=== PATIENT | male | born 1995 | race Caucasian/White ===

== ENCOUNTER 2017-05-19 14:58 | Emergency (ER) | payer BC ==
[~2017-05-19] VITALS: Ht 182.8 cm; Wt 76.7 kg
[~2017-05-19 14:58] MED LIST: AMOXICILLIN500 MG PO; IBU-6600 MG PO; MOTRIN800 MG PO; SINGULAIR10 MG PO
[2017-05-19 16:12] LABS: BASO % 0.3 % (0.0-1.0); EOS # 0.1 10*3/uL (0.0-0.4); EOS % 1.4 % (1.0-4.0); HEMATOCRIT 42.6 % (42.0-52.0); HEMOGLOBIN 14.9 g/dl (14.0-18.0); LYMPH # 1.7 10*3/uL (1.3-4.4); MEAN CELL VOLUME 89.9 fl (80.0-94.0); MEAN CORPUSCULAR HGB 31.4 pg (27.0-31.0); MONO # 0.4 10*3/uL (0.1-1.0); MONO % 5.1 % (3.0-9.0); NEUT # 5.5 10*3/uL (2.3-7.9); NEUT % 70.9 % (47.0-73.0); PLATELET COUNT AUTOMATED 200 10*3/uL (130-400); RED BLOOD COUNT 4.74 10*6/uL (4.50-5.90); RED CELL DISTRI WIDTH 11.9 % (0-14.5); WHITE BLOOD COUNT 7.8 10*3/uL (4.8-10.8)
[2017-05-19 16:13] LABS: BILIRUBIN NEGATIVE (NEGATIVE); BLOOD NEGATIVE (NEGATIVE); CLARITY SL CLOUDY (CLEAR); COLOR YELLOW (YELLOW); GLUCOSE NEGATIVE (NEGATIVE); KETONE NEGATIVE (NEGATIVE); LEUKO ESTERASE NEGATIVE (NEGATIVE); NITRITE NEGATIVE (NEGATIVE); PH 6.5 (5.0-9.0); PROTEIN NEGATIVE (NEGATIVE); UROBILINOGEN 0.2 E.U./dl (0.2-1.0)
[2017-05-19 16:28] LABS: ALBUMIN 4.1 gm/dl (3.1-4.5); ALKALINE PHOSPHATASE 65 U/L (45-117); BILIRUBIN, TOTAL 0.5 mg/dl (0.2-1.0); BUN 11 mg/dl (7-24); CARBON DIOXIDE 26 mmol/L (21-32); CHLORIDE 107 mmol/L (98-107); EST GLOM FILT AFRICAN AMERICAN > 60 ml/min; GLUCOSE 97 mg/dL (65-99); POTASSIUM 4.2 mmol/L (3.5-5.1); SGOT/AST 11 IU/L (3-35); SGPT/ALT 15 U/L (12-78); SODIUM 141 mmol/L (136-145)
[2017-05-19 16:28] LABS: MUCOUS TRACE; URINE REFLEX COMMENT NO (NO)
[2017-05-19 16:29] LABS: C-REACTIVE PROTEIN < 0.29 MG/DL (0-0.3)
[2017-05-19] MEDS ORDERED: BENTYL10 MG PO (16:39)
== END 2017-05-19 16:47 | disposition home or self-care (01) ==
LOC: ED 14:58
PROVIDERS: Physician Assistant
DX: K58.0 Irritable bowel syndrome with diarrhea (principal); F17.200 Nicotine dependence, unspecified, uncomplicated

== ENCOUNTER 2019-05-25 17:31 | Emergency (ER) | payer OTHER, BC ==
[~2019-05-25] VITALS: Ht 182.8 cm; Wt 77.1 kg
[~2019-05-25 17:31] MED LIST changes: +BENTYL10 MG PO
== END 2019-05-25 18:27 | disposition home or self-care (01) ==
LOC: ED 17:31
DX: H00.011 Hordeolum externum right upper eyelid (principal)

== ENCOUNTER 2021-12-09 17:52 | Emergency (ER) | payer BC ==
[2021-12-09] MEDS ORDERED: Motrin,Rufen800 MG PO (18:15)
[2021-12-09] MEDS ORDERED: CYCLOBENZAPRINE5 M3 PO (18:15)
== END 2021-12-09 18:40 | disposition home or self-care (01) ==
LOC: ED 17:52
DX: M54.12 Radiculopathy, cervical region (principal); J45.909 Unspecified asthma, uncomplicated

== ENCOUNTER 2023-03-21 04:08 | Emergency (ER) | payer OTHER ==
[~2023-03-21 04:08] MED LIST changes: +CYCLOBENZAPRINE5 M3 PO; +Motrin,Rufen800 MG PO
[2023-03-21] MEDS ORDERED: HYDROCODONE-AC1 EAC1 PO (05:34)
== END 2023-03-21 05:55 | disposition home or self-care (01) ==
LOC: ED 04:08
DX: S62.141A Displaced fracture of body of hamate [unciform] bone, right wrist, initial encounter for closed fracture (principal); V86.55XA Driver of 3- or 4- wheeled all-terrain vehicle (ATV) injured in nontraffic accident, initial encounter; Y93.89 Activity, other specified; Y92.89 Other specified places as the place of occurrence of the external cause; Y99.8 Other external cause status